=== PATIENT | male | born 1970 | race Caucasian/White ===

== ENCOUNTER → 2023-07-11 09:03 | Outpatient (REF) | payer BC, SELFPAY | LOC: RCS 09:03 | PROVIDERS: ATTENDING PHYSICIAN Internal Medicine Interventional Cardiology; FAMILY PHYSICIAN Family Medicine | DX: I25.10 Atherosclerotic heart disease of native coronary artery without angina pectoris (principal); I25.2 Old myocardial infarction | CPT/HCPCS: 93017; 93350 ==

== ENCOUNTER → 2024-10-26 14:54 | Outpatient (REF) | payer BC, SELFPAY | LOC: HWRAD 14:54 | PROVIDERS: ATTENDING PHYSICIAN Specialist | DX: S38.02XA Crushing injury of scrotum and testis, initial encounter (principal) | CPT/HCPCS: 76870; 93976 ==